=== PATIENT | female | born 1975 | race Caucasian/White ===

== ENCOUNTER 2022-08-10 12:27 | Emergency (ER) | payer BC, SELFPAY ==
[2022-08-10] VITALS (11 sets, daily range): BP systolic 134–146; BP diastolic 76–84; PULSE 84–98; RESP 15–27; TEMP 36.6; O2SAT 95–99
--- NOTE | ~2022-08-10 | CT_ITS ---
EXAMINATION: CT abdomen pelvis w con DATE: 08/10/2022 14:30 INDICATION: Generalized abdominal pain. TECHNIQUE: Computed tomography (CT) of the abdomen and pelvis was performed with 100 mL Omnipaque 350 intravenous contrast. Automated exposure control and iterative reconstruction technique were employe d. The dose-length product was 529.17 mGy-cm. COMPARISON: None. FINDINGS: The visualized portions of the lung bases demonstrate mild atelectasis and scarring. No ple ural effusion. There is pleural thickening on the right with pleural calcifications. The heart size i s normal. No pericardial effusion. The liver and gallbladder are normal. 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 The pancreas and adrenal glands are normal. There is cortical thinning of the kidneys. The appendix is normal. There is wall thickening of the transverse and desce nding colon. There is a 6.0 cm uterine fibroid. There is a 2.0 cm dominant follicle in left ovary. Th ere are no pathologically enlarged lymph nodes. There is no significant stenosis of celiac axis, supe rior mesenteric artery, or inferior mesenteric artery. There is a small volume of ascites. There are healing fractures of left eighth and ninth ribs. There is mild lumbar spondylosis. IMPRESSION: 1. Colitis involving the transverse and descending colon. 2. Small volume of ascites. Reviewed, dictated and finalized at location A.
[2022-08-10 12:54] LABS: Basophils Absolute Auto 0.1 K/mm3 (0.0-0.1); Basophils Percent Auto 0.3 % (0.2-1.2); Eosinophils Absolute Auto 0.4 K/mm3 (0-0.3); Eosinophils Percent Auto 1.9 % (0-4.4); Hematocrit 39.7 % (37.0-47.0); Hemoglobin 13.4 g/dL (12.0-15.0); Immature Granulocyte Absolute 0.15 K/mm3 (0.00-0.031); Immature Granulocyte Percent A 0.8 % (0-0.5); Lymphocytes Absolute Auto 1.84 K/mm3 (0.9-3.2); Lymphocytes Percent Auto 9.3 % (18.3-44.2); Mean Corpuscular HGB Conc 33.8 g/dl (32-36); Mean Corpuscular Hemoglobin 32.8 pg (26-34); Mean Corpuscular Volume 97.3 fl (80-100); Mean Platelet Volume 8.7 fl (7.4-10.4); Monocytes Absolute Auto 1.1 K/mm3 (0.1-0.6); Monocytes Percent Auto 5.3 % (2.6-8.5); Neutrophils Absolute Auto 16.4 K/mm3 (1.3-6.7); Neutrophils Percent Auto 82.4 % (45.5-73.1); Platelet Count Result 332 k/mm3 (150-375); Red Blood Count 4.08 M/mm3 (4.2-5.4); Red Cell Distribution Width 11.6 % (11.5-14.5); White Blood Count 19.9 K/mm3 (4.5-10.0)
--- NOTE | 2022-08-10 13:05 | ED.ABDPAIN ---
HPI - Abdominal Pain General Chief Complaint: Abdominal Pain Stated Complaint: lower abd pain/bloody stool Time Seen by Provider: 08/10/22 12:36 History of Present Illness HPI narrative: 47-year-old female presented to the emergency department for evaluation of diffuse abdominal pain. Patient states that the symptoms have been ongoing for the last 3 days. Patient does have associated nausea vomiting diarrhea. Patient ports that she did have some blood in her emesis a few days ago but that has since resolved. Patient states that she was having diarrhea and did have some bright red blood in her stool but that is also since resolved. Patient does have history of peptic ulcer approximately 15 years ago. Patient has not had a scope since that time. Related Data Allergies Allergy/AdvReac Type Severity Reaction Status Date / Time No Known Allergies Allergy Verified 08/10/22 12:28 Review of Systems Review of Systems: All systems reviewed & are unremarkable except as noted in HPI and below Exam Narrative: APPEARANCE: Well appearing, no pain, no distress, well-nourished. HEAD: normocephalic, atraumatic. EYES: PERRLA/EOMI, conjunctivae clear. NOSE: Normal no drainage NECK: Supple. No adenopathy, no masses. RESPIRATORY: Airway patent, respirations nonlabored. Clear to auscultation bilaterally, no rales, rhonchi, wheezing. CARDIOVASCULAR: Regular rate and rhythm without murmurs rubs or gallops. ABDOMINAL: Soft, nondistended, normal bowel sounds, diffusely tender MUSCULOSKELETAL: Moves all extremities. Strength/ROM intact, No edema, No calf tenderness. NEURO: Alert. Cranial nerves II through XII intact. Grossly intact SKIN: Warm, dry. Normal Color Course Course Emergency Course: 47-year-old female presented the emergency department for evaluation of persistent nausea vomiting diarrhea and epigastric and abdominal pain. Patient was provided IV Zofran, IV fluids, IV Dilaudid and IV Protonix. Patient was updated on the plan for labs and for imaging. On initial labs patient was afebrile but does have a white count of 19.9. Patient's CMP showed no significant abnormality patient's UA did show some trace leukoesterase and red blood cells, patient has no urinary symptoms.. Urine culture is pending. CT scan did show evidence of colitis involving the transverse and descending colon, patient was started on Augmentin. Patient and family were updated on the results of the work-up plan and treatment plan. Patient was advised to follow clear liquid diet for the next few days. Patient was also encouraged to follow-up with GI. Patient was provided GI follow-up on discharge instructions. All questions and concerns were addressed. Vital Signs Vital signs: Vital Signs Temperature 97.8 F 08/10/22 12:29 Pulse Rate 98 08/10/22 12:29 Respiratory Rate 18 08/10/22 12:29 Blood Pressure 146/84 H 08/10/22 12:29 Pulse Oximetry 98 08/10/22 12:29 Oxygen Delivery Room Air 08/10/22 12:29 Temperature 97.8 F 08/10/22 12:29 Pulse Rate 92 08/10/22 14:46 Respiratory Rate 27 H 08/10/22 14:46 Blood Pressure 134/84 08/10/22 14:20 Pulse Oximetry 97 08/10/22 14:46 Oxygen Delivery Room Air 08/10/22 12:29 MDM - Abdominal Pain Lab Data 08/10/22 12:42 08/10/22 12:42 Labs: Lab Results 08/10/22 08/10/22 08/10/22 Range/Units 12:42 14:18 15:30 WBC 19.9 H (4.5-10.0) K/mm3 RBC 4.08 L (4.2-5.4) M/mm3 Hgb 13.4 (12.0-15.0) g/dL Hct 39.7 (37.0-47.0) % MCV 97.3 (80-100) fl MCH 32.8 (26-34) pg MCHC 33.8 (32-36) g/dl RDW 11.6 (11.5-14.5) % Plt Count 332 (150-375) k/mm3 MPV 8.7 (7.4-10.4) fl Immature Gran % (Auto) 0.8 H (0-0.5) % Neut % (Auto) 82.4 H (45.5-73.1) % Lymph % (Auto) 9.3 L (18.3-44.2) % Darke % (Auto) 5.3 (2.6-8.5) % Eos % (Auto) 1.9 (0-4.4) % Baso % (Auto) 0.3 (0.2-1.2) % Lymph # (Auto) 1.84 (0
[2022-08-10] MEDS: HYDROmorphone HCL INJ (*CRX) 1 MG/ML SYR 0.5 MG IV PUSH (13:11)
[2022-08-10] MEDS: ONDANSETRON INJ 4 MG/2 ML VIAL IV PUSH (13:11)
[2022-08-10] MEDS: SODIUM CHLORIDE 0.9% IV 1,000 ML 999 ML IV CONT ×2 (13:11→15:30)
[2022-08-10] MEDS: PANTOPRAZOLE SODIUM IV 40 MG VIAL IV PUSH (13:12)
[2022-08-10 13:42] LABS: Anion Gap 7 mmol/L (8-16); Blood Urea Nitrogen 9 mg/dL (7-17); Carbon Dioxide 30 mmol/L (22-30); Chloride 101 mmol/L (98-107); Estimated CRCL calculation 62 ml/min; Estimated Glomerular Filt Rate > 60; Potassium 3.6 mmol/L (3.4-5.0); Sodium 138 mmol/L (137-145)
[2022-08-10 13:43] LABS: Alanine Aminotransferase 14 U/L (6-35); Aspartate Amino Transferase 21 U/L (14-36); Bilirubin,Total 0.5 mg/dL (0.2-1.3); Calcium 9.2 mg/dL (8.4-10.2); Glucose 109 mg/dL (65-110)
[2022-08-10 13:44] LABS: Albumin Level 4.4 g/dL (3.5-5.1); Alkaline Phosphatase 90 U/L (38-126); Lipase 32 U/L (23-300); Total Protein 7.5 g/dL (6.3-8.2)
[2022-08-10 14:36] LABS: Appearance Urine Clear (Clear); Bacteria Urine 1+ /hpf; Bilirubin Urine Negative (Negative); Blood Urine Trace (Negative); Color Urine Yellow (Yellow); Glucose Urine UA Negative (Negative); Ketones Urine Trace mg/dL (Negative); Leukocyte Esterase Ur Trace LEU/UL (Negative); Nitrate Urine Positive (Negative); Non Pathogenic Casts 0-2; Protein Urine Negative (Negative); Specific Grav Ur 1.012 (1.001-1.035); Squamous Epithelial Cell Urine None seen /hpf (Few); Urobilinogen Urine 0.2 mg/dL (<2.0); WBC Urine 0-5 /hpf; pH Urine 6.5 (5.0-9.0)
[2022-08-10 14:42] LABS: Add Urine Microscopic? YES
[2022-08-10] MEDS: HYDROmorphone HCL INJ (*CRX) 1 MG/ML SYR IV PUSH (15:31)
[2022-08-10 15:43] LABS: Lactic Acid Reflex 0.8 mmol/L (0.7-2.0)
[2022-08-10] MEDS: AMOXICILLIN/CLAVULANATE K 875-125 MG TAB 1 TABLET PO (16:46)
== END 2022-08-10 17:28 | disposition home or self-care (01) ==
PROVIDERS: Family Medicine; Emergency Provider Emergency Medicine; PCP Family Medicine
DX: K52.9 Noninfective gastroenteritis and colitis, unspecified (principal)
CPT/HCPCS: 36415; 74177; 80053; 81001; 81025; 83605; 83690; 85025; 96361; 96374; 96375; 96376; 99284; A9270; C9113; J1170; J2405; J7030; Q9967